=== PATIENT | male | born 1955 | race Caucasian/White ===

== ENCOUNTER 2018-04-09 08:23 | Outpatient (CLI) | payer BC, OTHER ==
--- NOTE | 2018-04-09 10:52 | RAD ---
LUMBAR SPINE SERIES 4 VIEWS: Date: 04/09/18 HISTORY: Low back pain. FINDINGS: The vertebral bodies are normal in height. Degenerative changes are seen along the course of the lumb ar spine with disc narrowing most marked at L5-S1 with vacuum disc phenomenon. Degenerative facet judy nges are present. No spondylolisthesis. Pedicles are intact. Moderate vascular calcifications are see n. IMPRESSION: Arthritic changes of the spine with fairly marked disc narrowing at L5-S1. POS: BEL
--- NOTE | 2018-04-09 10:53 | RAD ---
THORACIC SPINE SERIES 3 VIEWS: Date: 04/09/18 HISTORY: Back pain. FINDINGS: The vertebral bodies all maintain normal height. There are somewhat prominent osteophytic changes in the lower thoracic spine present. These changes are slightly more right-sided. Pedicles are intact. IMPRESSION: Arthritic changes of the spine. No acute findings. POS: BEL
== END 2018-04-09 08:24 | disposition home or self-care (01) ==
LOC: RAD 08:23
PROVIDERS: ATTEND Internal Medicine Rheumatology
DX: M54.5 Low back pain (principal); M46.94 Unspecified inflammatory spondylopathy, thoracic region; M46.96 Unspecified inflammatory spondylopathy, lumbar region; M48.07 Spinal stenosis, lumbosacral region
CPT/HCPCS: 72072; 72100

== ENCOUNTER 2019-01-01 12:49 | Emergency (ER) | payer OTHER | END 2019-01-01 13:52 | disposition home or self-care (01) | LOC: SCSER 12:49 | DX: H54.62 Unqualified visual loss, left eye, normal vision right eye (principal); I10 Essential (primary) hypertension; F17.210 Nicotine dependence, cigarettes, uncomplicated | CPT/HCPCS: 99283 ==

== ENCOUNTER 2019-01-05 15:02 | Outpatient (CLI) | payer OTHER ==
--- NOTE | 2019-01-05 16:19 | ULT ---
BILATERAL CAROTID DUPLEX ULTRASOUND: 01/05/19 HISTORY: Left central retinal artery occlusion. Loss of vision in the left eye for the past five days. TECHNIQUE: Day scale, color flow and spectral Doppler imaging of the extracranial carotid artery system is perf ormed bilaterally. There is plaque formation on either side, left greater than right. The peak systolic velocity in the right ICA measures 77 cm/s with an end diastolic velocity of 27 cm/ s and systolic ratio of 0.83. The peak systolic velocity in the left ICA measures 107 cm/s with an end diastolic velocity of 30 cm/ s and systolic ratio of 1.0. The vertebral arteries are not satisfactorily visualized. IMPRESSION: No evidence of hemodynamically significant stenosis in either ICA. POS: DAV
== END 2019-01-05 15:03 | disposition home or self-care (01) ==
LOC: BICULT 15:02
PROVIDERS: ATTEND Ophthalmology
DX: H34.12 Central retinal artery occlusion, left eye (principal)
CPT/HCPCS: 93880